=== PATIENT | female | born 1970 | race Two or more races ===

== ENCOUNTER 2023-10-27 05:30 | Day surgery (SDC) | payer OTHER ==
[2023-10-20 10:08] LABS: HEMATOCRIT 43.1 % (36.0-45.00); HEMOGLOBIN 14.8 g/dL (12.0-15.00); MEAN CELL VOLUME 95.3 fL (80.00-100.00); MEAN CORPUSCULAR HEMOGLOBIN 32.7 pg (27.00-32.0); MEAN CORPUSCULAR HGB CONC 34.3 g/dl (32.0-36.0); PLATELET COUNT 348 K/uL (150-450); RED BLOOD COUNT 4.52 M/uL (4.00-6.00); RED CELL DISTRIBUTION WIDTH 12.4 % (11.5-14.5)
[2023-10-20 10:31] LABS: URINE APPEARANCE Clear; URINE BILIRRUBIN Negative (NEGATIVE); URINE BLOOD Negative; URINE COLOR Yellow; URINE GLUCOSE Negative (NEGATIVE); URINE KETONE Negative (NEGATIVE); URINE LEUKOCYTE Negative; URINE NITRATE Negative; URINE PROTEIN Negative (NEGATIVE)
[2023-10-20 10:35] LABS: URINE BACTERIA 841.6 uL (0.0-1933); URINE EPITHELIAL CELLS 18.8 uL (0.0-38.8); URINE RBC 2.4 uL (0.0-20.8); URINE WBC 4.1 uL (0.0-23.2)
[2023-10-20 10:46] LABS: INR 0.96; PARTIAL THROMBOPLASTIN TIME 30.6 SECONDS (22.0-34.0)
[2023-10-20 10:47] LABS: URINE CAST 0.15 uL (0.0-1.40)
[2023-10-20 10:49] LABS: PROTHROMBIN TIME 10.5 SECONDS (9.0-11.5)
[2023-10-20 11:21] LABS: ALBUMIN 4.3 gm/dL (3.4-5.0); BILIRUBIN TOTAL 0.67 mg/dL (0.3-1.2); CALCIUM 9.7 mg/dL (8.5-10.1); CREATININE SERUM 0.63 mg/dL (0.55-1.02); GFR 98.47; GLOBULINA 3.4 G/DL (2.4-3.5); POTASSIUM 3.89 mEq/L (3.5-5.1); TOTAL PROTEIN 7.7 gm/dL (6.4-8.2)
[~2023-10-27 05:30] MED LIST: LYRICA150 MG PO; XANAX2 MG PO
[2023-10-27] MEDS ORDERED: POVIDONE-IODINE 118 ML BOTT TOP ONE ×2 (07:08→08:30)
[2023-10-27] MEDS ORDERED: KETOROLAC TROMETHAMINE 30 MG VIAL IU STA (08:39)
[2023-10-27] MEDS ORDERED: KETOROLAC TROMETHAMINE 30 MG VIAL ONE (09:09)
== END 2023-10-27 13:15 | disposition home or self-care (01) ==
LOC: CIR.AMB 05:30
PROVIDERS: ATTEND Obstetrics & Gynecology
DX: N84.0 Polyp of corpus uteri (principal); N95.0 Postmenopausal bleeding; D39.0 Neoplasm of uncertain behavior of uterus; D25.0 Submucous leiomyoma of uterus